=== PATIENT | male | born 1990 | race Caucasian/White ===

== ENCOUNTER 2019-01-07 10:04 | Emergency (ER) | payer SELFPAY ==
[2019-01-07] MEDS ORDERED: BOOSTRIX IM ONE (11:00)
--- NOTE | 2019-01-07 11:00 | Emergency Department Report ---
ED Laceration HPI - HPI Chief Complaint: Laceration/Recheck/Suture Stated Complaint: THUMB LAC Time Seen by Provider: 01/07/19 10:58 Occurred When: Today Location: Upper Extremity (L thumb) Severity: mild Tetanus Status: Not up to Date Laceration Symptoms: No Foreign Body Sensation, No Numbness, No Weakness, No Pain Other History: L hand lac, sharp edge, 1h [employer] [employer] ED Review of Systems ROS: Stated complaint: THUMB LAC Other details as noted in HPI Comment: All other systems reviewed and negative Skin: as per HPI ED Past Medical Hx - Past Medical History Previous Medical History?: Yes Hx Asthma: Yes Additional medical history: Morbid obesity - Surgical History Past Surgical History?: Yes Additional Surgical History: t&a - Social History Smoking Status: Current Every Day Smoker Substance Use Type: Alcohol, Marijuana - Medications Home Medications: Home Medications Medication Instructions Recorded Confirmed Last Taken Type ALBUTEROL NEB's [Proventil 0.083% 2.5 mg IH TID PRN #25 neb 07/15/13 07/16/13 Unknown Rx NEBS] Albuterol Sulfate [Albuterol 0.63%] 0.63 mg IH TID PRN 07/15/13 07/16/13 07/14/13 15:00 History Albuterol Sulfate [Ventolin HFA] 2 puff IH Q4H PRN #1 hfa.aer.ad 07/15/13 07/16/13 Unknown Rx Azithromycin [Zithromax Z-ISHA] 250 mg PO DAILY #6 tab 07/15/13 07/16/13 Unknown Rx Codeine Phosphate/Guaifenesin 5 ml PO Q6H PRN #8 oz 07/15/13 07/16/13 Unknown Rx [Guaifenesin-Codeine Syrup] Prednisone 3 tab PO QDAY #15 tablet 07/15/13 07/16/13 Unknown Rx Sulfamethoxazole/Trimethoprim 1 each PO BID #10 tablet 07/16/13 Unknown Rx [Bactrim Ds] Cyclobenzaprine [Flexeril 10 MG 10 mg PO Q8H PRN #21 tablet 02/21/15 Unknown Rx TAB] Diclofenac Dr [Voltaren Dr] 75 mg PO Q12H #60 tablet 02/21/15 Unknown Rx Laceration Physical Exam - Exam General: Vital signs noted. No distress. Alert and acting appropriately. Wound Length (cm): 2 Laceration Location: Upper Extremity (L hand, dorsal MCP) Laceration Exam: Yes Normal Distal CMS, No Foreign Body, No Exposed Tendon, Vessel, or Nerve, No Tendon Injury ED Course Vital Signs 01/07/19 10:07 Temperature 97.9 F Pulse Rate 83 Respiratory 18 Rate Blood Pressure 155/77 O2 Sat by Pulse 97 Oximetry - Laceration /Wound Repair L dorsal hand Wound Location: upper extremity Wound Length (cm): 1 Wound's Depth, Shape: superficial Wound Explored: clean Irrigated w/ Saline (ccs): 100 Betadine Prep?: Yes Anesthesia: Lidocaine w/ Epi Volume Anesthetic (ccs): 1 Wound Debrided: minimal Wound Repaired With: sutures Suture Size/Type: 5:0, proline Number of Sutures: 3 Layer Closure?: No Sterile Dressing Applied?: Yes ED Medical Decision Making - Medical Decision Making Patient was superficial uncomplicated laceration over the dorsal hand. This was repaired. I do not feel antibiotics are warranted given the minor nature of injury though advised to monitor for signs of infection. Follow-up for suture removal in 10 days. - Differential Diagnosis lac Critical care attestation.: If time is entered above; I have spent that time in minutes in the direct care of this critically ill patient, excluding procedure time. ED Disposition Clinical Impression: Laceration Disposition: DC-01 TO HOME OR SELFCARE Is pt being admited?: No Condition: Good Instructions: Laceration (ED), Suture Care (ED) Referrals: CHIDI KEYS MD [Primary Care Provider] - 3-5 Days Time of Disposition: 11:15
[2019-01-07 11:33] VITALS: BP 132/69
== END 2019-01-07 11:33 | disposition home or self-care (01) ==
LOC: ED 10:04
DX: S61.412A Laceration without foreign body of left hand, initial encounter (principal); J45.909 Unspecified asthma, uncomplicated; E66.01 Morbid (severe) obesity due to excess calories; F17.200 Nicotine dependence, unspecified, uncomplicated; F12.90 Cannabis use, unspecified, uncomplicated; Z79.899 Other long term (current) drug therapy; X58.XXXA Exposure to other specified factors, initial encounter; Y93.89 Activity, other specified; Y92.89 Other specified places as the place of occurrence of the external cause; Y99.8 Other external cause status
CPT/HCPCS: 90715; 99282